=== PATIENT | male | born 1995 | race Caucasian/White ===

== ENCOUNTER 2022-03-06 12:41 | Emergency (ER) | payer SELFPAY ==
[2022-03-06 12:47] VITALS: BP 138/89; PULSE 73; RESP 16; TEMP 37.5; O2SAT 98
--- NOTE | 2022-03-06 13:35 | W.ED.GENAD ---
Discharge Plan Disposition Patient Disposition: HOME Condition: Stable Discharge Details Clinical Impression: Laceration of scalp without complication Primary Care Provider: Unknown,Unknown ED Provider: Ramonita Workman Home Meds and New Rx's Prescriptions: No Action divalproex 500 mg tablet extended release 24 hr 1,000 mg PO DAILY Label Comments: TAKE 2 TABLETS BY MOUTH DAILY Discharge Instructions Instructions: Skin Adhesive Care (ED), Head Laceration (ED) Additional Instructions: Tissue adhesive for Dermabond was applied. He may wash under running soap and water tomorrow morning. This adhesive should slough off in approximately 4 to 6 days. Allow to air dry. No soaking. Return to the ER for any signs of infection including increased redness, warmth, swelling or drainage. Please take Tylenol or Ibuprofen with food every 4-6 hours as needed for pain and swelling. Stand Alone Forms: Work Release Discharge Data Discharge Date/Time-TO BE ENTERED AT DEPARTURE: 03/06/22 14:14 Medical Decision Making Laceration cleaned with sterile normal saline and irrigated. Tissue adhesive applied. Discussed home care and strict return instructions. Superficial avulsion noted with irregular borders. Patient is up-to-date on tetanus vaccination. HPI General Mode of arrival: ambulatory. Date/Time Provider Initiated Documentation: 03/06/22 13:01. Limitations to Documentation: no limitations. Information obtained by: patient, RN notes reviewed and old records reviewed. HPI Narrative: 26-year-old male presents to the ER with chief complaint of posterior occipital scalp laceration which occurred approximately an hour prior to arrival while at work. Patient states that he was carrying a large metal beam with screws on them when the pain began to fall the screw cut the back of his head. He denies any loss of consciousness denies any dizziness. He did get a tetanus vaccination proximally a year ago. Bleeding is controlled upon arrival. Denies any blurry vision neck pain or any other associated symptoms. Does have a irregular laceration approximately less than 1 cm to the posterior scalp. Related Data Home Medications Medication Instructions Recorded Confirmed divalproex 500 mg tablet,extended 1,000 mg PO DAILY 03/06/22 03/06/22 release 24 hr Allergies Allergy/AdvReac Type Severity Reaction Status Date / Time No Known Allergies Allergy Unverified 03/06/22 12:50 General Stated Complaint: Laceration ERIC: 4 Review of Systems Constitutional Constitutional: Reports headache(s) (mild) Eyes Eyes: Denies loss of vision ENT Ears, Nose, Mouth, and Throat: Denies dizziness, Reports headache(s) (mild) and Denies disequilibrium Cardiovascular Cardiovascular: Denies syncope Musculoskeletal Musculoskeletal: Denies abnormal gait Integumentary/Breasts Skin/Breast: Reports as per HPI and Reports wounds (Laceration posterior occipital scalp) Neurologic Neurologic: Denies abnormal speech, Denies abnormal gait, Denies dizziness, Denies syncope, Reports headache(s) (mild), Denies localized weakness, Denies loss of vision, Denies convulsions and Denies disequilibrium PFSH All Active Problems (Updated 03/06/22 @ 14:06 by Ramonita Workman NP) Laceration of scalp without complication (Acute) Social History Smoking/Tobacco Use Status: Never Smoking risk assessment performed?: Yes Alcohol Intake: current Alcohol Intake frequency: 0-2 drinks per day Substance use type: does not use Do you feel safe at home: Yes Do you feel safe in your relationship?: Yes Exam [facility] Head: normal to inspection, no palpable skull fracture, normocephalic, no Fischer's sign, laceration left occipital irregular and involving subcutaneous tissue; not actively bleeding, without pulsatile bleeding and not contaminated 0.31 in, no palpable skull fracture, no raccoon eyes and No periorbital ecchymosis Head images: 1. Approximately 8 mm irregular laceration noted to the occipital scalp. No active bleeding. Back/Spine/Pelvis Cervical Spine: normal cervical lordosis, cervical ROM normal and No cervical spinal tenderness Course Vital Signs Vital signs: Vital Signs Temperature 37.5 C 03/06/22 12:47 Pulse 73 03/06/22 12:47 Respiratory Rate 16 03/06/22 12:47 Blood Pressure 138/89 03/06/22 12:47 Pulse Oximetry 98 03/06/22 12:47 Temperature 37.5 C 03/06/22 12:47 Pulse 73 03/06/22 12:47 Respiratory Rate 16 03/06/22 12:47 Respiratory Effort 03/06/22 12:51 Blood Pressure 138/89 03/06/22 12:47 Pulse Oximetry 98 03/06/22 12:47 Pain Level 3 03/06/22 12:51 Procedures Laceration Laceration 1: Site: scalp Size (cm): 0.8 Description: irregular Depth: simple, single layer Pre-repair: wound explored, irrigated extensively and deep structures intact Size (cm): other (Tissue adhesive)
--- NOTE | 2022-03-06 13:49 | NUR.NOTE ---
cleaned wound with normal saline. DELTA
== END 2022-03-06 14:14 | disposition home or self-care (01) ==
PROVIDERS: Emergency Provider Registered Nurse Emergency
DX: S01.01XA Laceration without foreign body of scalp, initial encounter (principal); W26.8XXA Contact with other sharp object(s), not elsewhere classified, initial encounter
CPT/HCPCS: 12001